=== PATIENT | male | born 1955 | race Caucasian/White ===

== ENCOUNTER 2020-09-22 14:17 | Outpatient (CLI) | payer MEDICAID, SELFPAY ==
--- NOTE | 2020-09-22 14:15 | RT.EKG_ITS ---
APPROVED REPORT Exam: Resting ECG Patient Location: O HR:79 bpm ECG Measurements Heart Rate 79 AXIS WA 167 P 52 QRSd 86 QRS 39 QT 356 T 39 QTc 409 Conclusion Sinus rhythm...normal P axis, V-rate 50- 99 Borderline low voltage, extremity leads...all extremity leads <0.6mV Normal Electrocardiogram
== END 2020-09-22 14:18 | disposition home or self-care (01) ==
PROVIDERS: Visit Provider Internal Medicine Cardiovascular Disease
DX: R06.02 Shortness of breath (principal)
CPT/HCPCS: 93010

== ENCOUNTER 2020-09-24 00:45 | Outpatient (CLI) | payer MEDICAID, SELFPAY ==
--- NOTE | 2020-09-24 08:00 | ETT_ITS ---
APPROVED REPORT Exam: Exercise Treadmill Patient Location: Out-Patient Room/Bed: Stress Nurse: Jyoti Skinner RN Ordering Provider:LATOYA GRAY, Contact Number: BMI: 34.51 Baseline Rhythm: Sinus Rhythm Indications: DYSPNEA ON EXERTION, CORONARY ARTERY DISEASE. Medical History Medical History: CAD, HIV, HTN, HLD, prior tobacco use, Obesity Cardiac Medications: Atorvastatin, Lisinopril Allergies: No known drug allergies Cardiac Risk Factors: HTN, Hyperlipidemia, Obesity, Smoking (former) Previous Cardiac Procedures: None. Pretest Chest Pain Characteristics: No chest pain Exercise History: Sedentary Physical Disabilities: None. Lung Sounds: Clear to auscultation Heart Sounds: Regular Stress Test Details Test: Exercise stress testing was performed using a Rafael protocol. Rest Stress HR Resting HR Supine: 60 bpm Max Heart Rate (APMHR): 158 bpm Resting HR Standin bpm Target HR (85% APMHR): 134 bpm Max HR Achieved: 156 bpm % of APMHR: 98 Recovery HR: 99 bpm HR response to stress: Normal HR response to stress BP Resting BP Supine: 142/88 mmHg Resting BP Standin/70 mmHg Max BP: 178/82 mmHg Recovery BP: 152/86 mmHg BP response to stress: Normal blood pressure response to stress. ECG Resting ECG: Sinus Rhythm Ectopy: None. Stress ECG: Sinus Tachycardia ST Change: No significant ST segment changes noted Arrhythmia: PVCs, Couplet. Recovery ECG: Sinus Tachycardia Recovery ST Change: No significant ST segment changes noted, , No significant ST segment changes note d, Horizontal ST depression, Upsloping ST depression, Downsloping ST depression Recovery Arrhythmia: PVCs. Clinical Reason for Termination: Dyspnea Stress Symptoms: Dyspnea Exercise duration: 7 min20 sec Highest Stage Reached: Stage 3: 3.4 mph at 14% grade. Exercise capacity: 9.08 METs Altman Treadmill Score: 6.1 Rate Pressure Product: [id number] Stress ECG Conclusion 1. The resting electrocardiogram was normal 2. Patient exercised on the Rafael protocol and completed a workload of 9.08 METS, limited by shortnes s of breath 3. Normal heart rate and blood pressure response to exercise. Patient achieved 98% of predicted hear t rate for age 4. Electrocardiographically there was no evidence of myocardial ischemia 5. Several PVCs were noted Altman Treadmill Score is 6.1 which is Low risk. Stress Test Summary STAGE Time (mins) Speed (mph) Grade (%) HR BP SYMPTOMS METS Supine 60 142/88 Standing 76 122/70 SpO2 98% 1 3 1.7 10 117 148/76 SpO2 98% 4.6 2 6 2.5 12 146 164/78 SpO2 97% Moderate dyspnea 7 1 min recovery 135 132/58 SpO2 98% Lightheaded 3 min recovery 106 178/82 SpO2 98% Symptoms resolved. 6 min recovery 99 152/86
== END 2020-09-24 01:05 ==
PROVIDERS: PCP Nurse Practitioner Family; Visit Provider Internal Medicine Cardiovascular Disease
DX: R06.09 Other forms of dyspnea (principal); I25.10 Atherosclerotic heart disease of native coronary artery without angina pectoris; I10 Essential (primary) hypertension; E78.5 Hyperlipidemia, unspecified; E66.9 Obesity, unspecified; Z87.891 Personal history of nicotine dependence
CPT/HCPCS: 93017

== ENCOUNTER 2020-10-20 02:28 | Outpatient (CLI) | payer MEDICAID, SELFPAY ==
--- NOTE | 2020-10-20 13:47 | DI.US_ITS ---
APPROVED REPORT EXAM: Comprehensive 2D, Doppler, and color-flow Echocardiogram Patient Location: Out-Patient Beauty Sales Advisor: Maliha Briceno RDCS (AE) Indications: SOB, CAD, CUETO Other Information Study Quality: Adequate Conclusion Normal left ventricular wall thickness and chamber size. Estimated ejection fraction is 60 to 65%. There are no segmental wall motion abnormalities Normal right ventricular size and systolic function Both atria are normal in size There is no significant valvular disease Wall motion Left Ventricle The left ventricle is normal size. The left ventricular systolic function is normal. The left ventric ular ejection fraction is within the normal range. There is normal left ventricular wall thickness. T here is normal LV segmental wall motion. There is no ventricular septal defect visualized. LVEF is 60 -65%. Right Ventricle The right ventricle is normal size. The right ventricular systolic function is normal. The RVSP is 25 .5 mmHg. Atria The left atrium size is normal. The right atrium size is normal. The interatrial septum is intact wit h no evidence for an atrial septal defect. Aortic Valve The aortic valve is normal in structure. Aortic valve is trileaflet. There is no aortic valvular sten osis. No aortic regurgitation is present. Mitral Valve The mitral valve is normal in structure. No evidence of mitral valve stenosis. Trace to mild mitral r egurgitation. Tricuspid Valve The tricuspid valve is normal in structure. There is no tricuspid valve stenosis. Trace tricuspid reg urgitation. Pulmonic Valve The pulmonary valve is normal in structure. There is no pulmonic valvular stenosis. There is no pulmo gonzalo valvular regurgitation. Great Vessels The aortic root is normal in size. The ascending aorta is normal in size. Aortic arch is normal in ca liber. IVC is normal in size and collapses >50% with inspiration. Pericardium There is no pericardial effusion. 2D Dimensions IVSD d PLAX 0.94 cm M: 0.6-1.2 LV Vol A2C d MOD 96.1 mL LVPW d PLAX 0.94 cm M: 0.6 - 1.2 LV Vol A4C d MOD 83.2 mL LVID d PLAX 5.11 cm M: 4.2 - 5.8 LA vol/ BSA A2C s A-L 28.7 mL/m2 LVDs 3.40 cm M: 2.5 - 4.0 LA vol/ BSA A4C s A-L 31.0 mL/m2 Ao Root d 3.04 cm M: 3.1 - 3.7 LA Vol/ BSA Biplane s A-L 31.3 mL/m2 RA Area A4C 15.73 cm2 LA Area A4C s MOD 21.33 cm2 RA Vol/ BSA A4C s A-L 21.7 mL/m2 LA Area A2C s MOD 19.54 cm2 Ao Asc Diam d 3.46 cm M: 2.6 - 3.4 LV EF A4C MOD 59.0 % LV EF Teichholz 60.6 % LV EF A2C MOD 63.4 % LVEF (Merrill's) 61.60 % M: 52 - 72 LV EF Biplane MOD 61.6 % LV Volume 66.61 mL M: 62 - 150 SV 55.66 mL LV Volume Index 31.71 mL/m2 M: 34 - 74 SV Index 26.41 mL/m2 LV Vol Biplane MOD 90.4 mL FS 32.55 % M-Mode TAPSE 3.19 cm (M/F) >1.7 LV Diastology MV E' medial 0.097 (>0.07 m/s) E/A Ratio 1.1 LV E/e MED 6.20 (<14) MV E Vmax 0.60 (0.4-1.3 m/s) MV E' lateral 0.110 (>0.1 m/s) MV A Vmax 0.55 (0.4-1.3 m/s) LV E/e LAT 5.45 (<14) MV E/A Ratio 1.01 MV E/E' medial 6.24 MV E/E' lateral 5.48 Aortic Valve LVOT Vmax 1.24 m/s LVOT Mean Scott. 0.82 m/s LVOT Peak Grad 6.2 mmHg LVOT Mean Grad 3.2 mmHg LVOT VTI 0.269 m AoV Vmax 1.49 m/s Velocity Ratio 0.83 AoV Mean Scott. 1.11 m/s AoV Peak Grad 8.9 mmHg AoV Mean Grad 5.4 mmHg AoV VTI 0.298 m Mitral Valve MV DT 188 (160-240 msec) MV PHT 54 msec MV Area PHT 4.04 cm2 MV VTI 0.256 m Pulmonary Valve PV Vmax 1.03 (0.5-1.5 m/s) RVOT Peak Gr. 3.28 mmHg PV Peak Grad 4.3 mmHg RVOT Mean Gr. 1.55 mmHg PV Mean Grad 2.2 mmHg RVOT VTI 0.177 m PV VTI 0.215 m RVOT Vmax 0.91 m/s Tricuspid Valve TR Peak Grad 22.4 mmHg TR Vmax 2.37 m/s RA Pressure 3.00 mmHg RVSP (TR) 25.5 mmHg
== END 2020-10-20 02:48 ==
PROVIDERS: PCP Nurse Practitioner Family; Visit Provider Internal Medicine Cardiovascular Disease
DX: R06.02 Shortness of breath (principal); I25.10 Atherosclerotic heart disease of native coronary artery without angina pectoris; I34.0 Nonrheumatic mitral (valve) insufficiency; R06.09 Other forms of dyspnea
CPT/HCPCS: 93306

== ENCOUNTER 2022-05-17 07:55 | Outpatient (CLI) | payer MEDICAID, SELFPAY ==
--- NOTE | 2022-05-17 07:45 | RT.EKG_ITS ---
APPROVED REPORT Exam: Resting ECG Reason for Exam: CAD Patient Location: O HR:60 bpm ECG Measurements Heart Rate 60 AXIS WV 174 P 34 QRSd 87 QRS 51 QT 394 T 36 QTc 394 Conclusion Sinus rhythm...normal P axis, V-rate 50- 99 Normal Electrocardiogram
== END 2022-05-17 07:56 | disposition home or self-care (01) ==
LOC: DI.CARD 07:56
PROVIDERS: PCP Nurse Practitioner Family; Visit Provider Internal Medicine Cardiovascular Disease
DX: I25.10 Atherosclerotic heart disease of native coronary artery without angina pectoris (principal)
CPT/HCPCS: 93010

== ENCOUNTER 2022-07-05 01:20 | Outpatient (CLI) | payer MEDICAID, SELFPAY ==
--- NOTE | 2022-07-05 06:15 | ETT_ITS ---
APPROVED REPORT Exam: Exercise Treadmill Patient Location: Out-Patient Room/Bed: Stress Nurse: Unique Wyatt RN Ordering Provider:LATOYA GRAY, Contact Number: [phone] BMI: 32.99 Baseline Rhythm: Sinus Bradycardia Indications: Dyspnea on exertion Medical History Medical History: Hyperlipidemia, hypertension, CAD, former tobacco use Cardiac Medications: Lisinopril Allergies: NKA Cardiac Risk Factors: Hyperlipidemia, hypertension, CAD, former tobacco use Previous Cardiac Procedures: None Pretest Chest Pain Characteristics: None Exercise History: Sedentary Physical Disabilities: None Lung Sounds: Clear to auscultation Heart Sounds: Regular Stress Test Details Test: Exercise stress testing was performed using a Rafael protocol. Rest Stress HR Resting HR Supine: 54 bpm Max Heart Rate (APMHR): 156 bpm Resting HR Standin bpm Target HR (85% APMHR): 133 bpm Max HR Achieved: 140 bpm % of APMHR: 90 Recovery HR: 78 bpm HR response to stress: Normal HR response to stress BP Resting BP Supine: 130/78 mmHg Resting BP Standin/80 mmHg Max BP: 198/78 mmHg Recovery BP: 142/80 mmHg BP response to stress: Normal blood pressure response to stress. ECG Resting ECG: Sinus Bradycardia Ectopy: None Stress ECG: Sinus Tachycardia ST Change: No significant ST segment changes noted Arrhythmia: Rare PVCs, couplet Recovery ECG: Sinus Rhythm Recovery ST Change: No significant ST segment changes noted Recovery Arrhythmia: Rare PAC and PVC Clinical Reason for Termination: Fatigue Stress Symptoms: General Fatigue, Dyspnea Exercise duration: 6 min44 sec Highest Stage Reached: Stage 3: 3.4 mph at 14% grade. Exercise capacity: 8.19 METs Angina Score: None Altman Treadmill Score: 6.1 Rate Pressure Product: [id number] Stress ECG Conclusion 1. The resting electrocardiogram was within normal limits 2. Patient exercised on the Rafael protocol and completed a workload of 8.19 METS 3. Normal heart rate and blood pressure response to exercise. Patient achieved 90% of predicted hear t rate for age 4. There was no electrocardiographic evidence of myocardial ischemia 5. There were no dysrhythmias Altman Treadmill Score is 6.1 which is Low risk. Stress Test Summary STAGE Time (mins) Speed (mph) Grade (%) HR BP SpO2 SYMPTOMS METS Supine 54 130/78 Standing 59 128/80 99% 1 3 1.7 10 118 134/80 98% 4.5 2 6 2.5 12 135 142/72 7 3 9 3.4 14 138 98% Moderate SOB 10 1 min recovery 118 178/70 98% SOB improving 3 min recovery 90 198/78 98% 6 min recovery 82 152/80 98% 9 min recovery 78 142/80 98% SOB resolved
== END 2022-07-05 01:40 ==
LOC: DI 01:23
PROVIDERS: PCP Nurse Practitioner Family; Visit Provider Internal Medicine Cardiovascular Disease
DX: I25.10 Atherosclerotic heart disease of native coronary artery without angina pectoris (principal); R06.00 Dyspnea, unspecified
CPT/HCPCS: 93017